=== PATIENT | female | born 1995 | race Caucasian/White ===

== ENCOUNTER 2023-01-06 12:09 | Inpatient (IN) | payer OTHER ==
[~2023-01-06] VITALS: Ht 172.7 cm; Wt 86.4 kg
[2023-01-06] MEDS: SERTRALINE HCL 50 MG TAB PO SCH (09:00)
[2023-01-06] MEDS ORDERED: ZOLO25TA PO (12:37)
[2023-01-06 12:50] LABS: HEMATOCRIT 40.3 % (36.0-47.0); HEMOGLOBIN 13.3 g/dl (12.0-15.5); MEAN CORPUSCULAR HEMOGLOBIN 29.4 pg (27.0-33.0); PLATELET COUNT, AUTOMATED 243 10^3/uL (150-450); RED BLOOD COUNT 4.53 10^6/uL (4.00-5.40); WHITE BLOOD COUNT 6.4 10^3/uL (4.0-10.0)
[2023-01-06 13:13] LABS: ETHYL ALCOHOL (ETHANOL) < 0.003 % (0.000-0.010)
[2023-01-06 13:14] LABS: ACETAMINOPHEN LEVEL < 2.0 UG/ML (10.0-20.0)
[2023-01-06 13:15] LABS: ALBUMIN 3.6 G/DL (3.2-5.2); ALKALINE PHOSPHATASE 68 U/L (46-116); ALT/SGPT 24 U/L (7.0-40); AST/SGOT 18 U/L (<34); BILIRUBIN,DIRECT < 0.1 MG/DL (<0.4); BILIRUBIN,TOTAL 0.2 MG/DL (0.3-1.2); BLOOD UREA NITROGEN 8 MG/DL (9-23); CALCIUM LEVEL 8.9 MG/DL (8.5-10.1); CARBON DIOXIDE LEVEL 27 MMOL/L (20-31); CHLORIDE LEVEL 107 MMOL/L (98-107); CREATININE FOR GFR 0.64 MG/DL (0.55-1.30); GLOMERULAR FILTRATION RATE > 60.0 (>60); GLUCOSE, FASTING 94 MG/DL (60-100); POTASSIUM SERUM 4.3 MMOL/L (3.5-5.1); SALICYLATE LEVEL < 3.0 MG/DL (<30); SODIUM LEVEL 139 MMOL/L (136-145); TOTAL PROTEIN 6.5 G/DL (5.7-8.2)
[2023-01-06 13:17] LABS: THYROID STIMULATING HORMONE 1.056 uIU/ML (0.55-4.78)
[2023-01-06 13:24] LABS: HCG, SERUM QUALITATIVE NEGATIVE (NEGATIVE)
[2023-01-06 15:53] LABS: CANNABINOIDS URINE NEGATIVE (NEGATIVE); METHADONE URINE NEGATIVE (NEGATIVE); OPIATES URINE NEGATIVE (NEGATIVE); PHENCYCLIDINE URINE NEGATIVE (NEGATIVE)
[2023-01-06 15:54] LABS: AMPHETAMINES LEVEL URINE NEGATIVE (NEGATIVE); BARBITURATES URINE NEGATIVE (NEGATIVE); BENZODIAZEPINES URINE NEGATIVE (NEGATIVE); COCAINE METABOLITE URINE NEGATIVE (NEGATIVE)
[2023-01-06] MEDS ORDERED: MAALOX 30 ML SUSP *UDC PO PRN (16:45)
[2023-01-06] MEDS ORDERED: OLANZapine ORAL DISINTEGRATING TAB 5MG PO PRN (16:45)
[2023-01-06] MEDS ORDERED: MOM 30ML SUSPENSION UDC PO PRN (16:45)
[2023-01-06] MEDS ORDERED: HOME MED LIST COMPLETE! XX SCH (18:30)
[2023-01-06 20:33] VITALS: BP 100/70
[2023-01-06] MEDS: ACETAMINOPHEN TAB 650MG DOSE (2X325MG) PO PRN (22:24)
[2023-01-06] MEDS: traZODone 50 MG TAB PO PRN (22:24)
[2023-01-07 06:03] VITALS: BP 107/72
[2023-01-07] MEDS: SERTRALINE HCL 50 MG TAB PO SCH (09:55)
[2023-01-07 18:29] VITALS: BP 119/65
[2023-01-07] MEDS: traZODone 50 MG TAB PO PRN (21:18)
[2023-01-07] MEDS: ACETAMINOPHEN TAB 650MG DOSE (2X325MG) PO PRN (21:18)
[2023-01-08 05:53] VITALS: BP 93/63
[2023-01-08] MEDS: SERTRALINE HCL 50 MG TAB PO SCH (09:19)
[2023-01-08 18:45] VITALS: BP 116/72
[2023-01-08] MEDS: traZODone 50 MG TAB PO PRN (21:28)
[2023-01-08] MEDS: ACETAMINOPHEN TAB 650MG DOSE (2X325MG) PO PRN (21:29)
[2023-01-09 06:05] VITALS: BP 111/54
[2023-01-09] MEDS: SERTRALINE HCL 50 MG TAB PO SCH (09:14)
[2023-01-09] MEDS: ACETAMINOPHEN TAB 650MG DOSE (2X325MG) PO PRN (14:41)
[2023-01-09] MEDS ORDERED: TRAZ-252 PO (15:34)
[2023-01-09] MEDS ORDERED: SERT50TA29 PO (15:34)
[2023-01-09 16:12] VITALS: BP 112/69
[2023-01-09] MEDS: traZODone 50 MG TAB PO PRN (21:10)
[2023-01-10 06:41] VITALS: BP 103/51
[2023-01-10] MEDS: SERTRALINE HCL 50 MG TAB PO SCH (08:55)
== END 2023-01-10 11:53 | disposition home or self-care (01) | DRG 882 ==
LOC: EDBD 12:09 → M ED 12:09 → M ED INP 16:45 → M PSY 20:30
PROVIDERS: ADMIT Psychiatry & Neurology Psychiatry; ATTEND Psychiatry & Neurology Psychiatry
DX: F43.10 Post-traumatic stress disorder, unspecified (principal); R45.851 Suicidal ideations; F32.9 Major depressive disorder, single episode, unspecified; F41.1 Generalized anxiety disorder; Z79.899 Other long term (current) drug therapy